=== PATIENT | female | born 1960 | race Two or more races ===

== ENCOUNTER → 2017-04-04 | Outpatient (CLI) | payer OTHER | END | disposition home or self-care (01) | LOC: HKI 15:19 | DX: M17.11 Unilateral primary osteoarthritis, right knee (principal) | CPT/HCPCS: 73564; 73564-RT ==

== ENCOUNTER → 2017-04-16 | Outpatient (CLI) | payer OTHER | END | disposition home or self-care (01) | LOC: HKI 14:29 | DX: M17.11 Unilateral primary osteoarthritis, right knee (principal) | CPT/HCPCS: 20610 ==

== ENCOUNTER → 2017-05-07 | Outpatient (CLI) | payer OTHER | END | disposition home or self-care (01) | LOC: HKI 14:57 | DX: M17.11 Unilateral primary osteoarthritis, right knee (principal); M25.551 Pain in right hip | CPT/HCPCS: 73502 ==

== ENCOUNTER → 2017-06-03 | Outpatient (CLI) | payer OTHER | END | disposition home or self-care (01) | LOC: HKI 10:37 | DX: M23.200 Derangement of unspecified lateral meniscus due to old tear or injury, right knee (principal) | CPT/HCPCS: Z7500 ==

== ENCOUNTER → 2017-06-27 | Outpatient (CLI) | payer OTHER | END | disposition home or self-care (01) | LOC: HKI 13:38 | DX: M17.11 Unilateral primary osteoarthritis, right knee (principal) | CPT/HCPCS: 20610 ==

== ENCOUNTER → 2017-10-31 | Outpatient (CLI) | payer OTHER | END | disposition home or self-care (01) | LOC: HKI 14:35 | DX: M25.561 Pain in right knee (principal) | CPT/HCPCS: 73564; 73564-RT ==

== ENCOUNTER → 2017-11-12 | Outpatient (CLI) | payer OTHER | END | disposition home or self-care (01) | LOC: HKI 13:46 | DX: M17.11 Unilateral primary osteoarthritis, right knee (principal) | CPT/HCPCS: 20610 ==

== ENCOUNTER → 2017-12-03 | Outpatient (CLI) | payer OTHER | END | disposition home or self-care (01) | LOC: HKI 14:49 | DX: M17.11 Unilateral primary osteoarthritis, right knee (principal) | CPT/HCPCS: 73564; 73564-RT ==

== ENCOUNTER 2018-04-16 05:19 | Inpatient (IN) | payer OTHER ==
[2018-04-16] MEDS: LACTATED RINGER'S 1,000 ML IV* (06:18)
[2018-04-16] MEDS ORDERED: LIDOCAINE 2% (SDV) 5 ML INJ (07:00)
[2018-04-16] MEDS ORDERED: ONDANSETRON 4 MG INJ (07:00)
[2018-04-16] MEDS ORDERED: FENTAnyl 50 MCG/ML VIAL ×2 (07:23→08:19)
[2018-04-16] MEDS ORDERED: MIDAZOLAM 1 MG/ML 2 ML INJ (07:23)
[2018-04-16] MEDS ORDERED: PROPOFOL 20 ML (07:23)
[2018-04-16] MEDS ORDERED: METOCLOPRAMIDE 10 MG INJ (07:26)
[2018-04-16] MEDS ORDERED: morphine SULFATE/PF (10 MG/10 ML) INJ (07:26)
[2018-04-16] MEDS ORDERED: ROPIVACAINE 0.5 % 30 ML VIAL (07:27)
[2018-04-16] MEDS ORDERED: HALOPERIDOL 5 MG INJ IV (07:30)
[2018-04-16] MEDS ORDERED: MIDAZOLAM 1 MG/ML 2 ML INJ IV (07:30)
[2018-04-16] MEDS ORDERED: BISACODYL 10 MG SUPP PR (07:30)
[2018-04-16] MEDS ORDERED: LEVALBUTEROL (NEB) 1.25 MG/0.5 ML AMP HHN (07:30)
[2018-04-16] MEDS ORDERED: BETHANECHOL 25 MG TAB PO (07:30)
[2018-04-16] MEDS ORDERED: MAGNESIUM HYDROXIDE 30ML CUP PO (07:30)
[2018-04-16] MEDS ORDERED: LORAZEPAM 2 MG INJ IV (07:30)
[2018-04-16] MEDS ORDERED: IPRATROPIUM (NEB) 0.5 MG/2.5 ML AMP HHN (07:30)
[2018-04-16] MEDS ORDERED: NACL 0.9% 3 ML SYG IV (07:30)
[2018-04-16] MEDS ORDERED: FENTAnyl 50 MCG/ML VIAL IV (07:30)
[2018-04-16] MEDS ORDERED: NA PHOSPHATE/BIPHOS 133 ML ENEMA PR (07:30)
[2018-04-16] MEDS ORDERED: oxyCODONE 5 MG TAB PO (07:30)
[2018-04-16] MEDS ORDERED: HYDROmorphONE 1 MG/5 ML IV SYRINGE IV (07:30)
[2018-04-16] MEDS ORDERED: hydrALAzine 20 MG INJ IV (07:30)
[2018-04-16] MEDS ORDERED: NALOXONE (0.4 MG/ML) INJ IV (07:30)
[2018-04-16] MEDS ORDERED: LABETALOL HCL 20MG INJ IV (07:30)
[2018-04-16] MEDS ORDERED: EPINEPHrine 1 MG INJ (07:32)
[2018-04-16] MEDS: TRANEXAMIC ACID 1,000 MG in NS 100 ML PRE-OP X1 IVPB (08:00)
[2018-04-16] MEDS: CEFAZOLIN 2 GM/50 ML (PMX) 50 ML IVPB ×4 (08:08→22:56)
[2018-04-16] MEDS ORDERED: HYDROmorphONE 2 MG/ML SYG (08:17)
[2018-04-16] MEDS: BACITRACIN 50000 UNITS INJ (08:22)
[2018-04-16] MEDS: POLYMYXIN B 500000 UNIT INJ (08:25)
[2018-04-16] MEDS: KNEE PAIN COCKTAIL (CEFUROXIME) INJ (08:25)
[2018-04-16] MEDS ORDERED: DEXAMETHASONE 4 MG/ML 5 ML INJ (09:09)
[2018-04-16] MEDS: TRANEXAMIC ACID 1,000 MG in NS 100 ML INTRA-OP X1 IVPB (09:11)
[2018-04-16] MEDS: HYDROmorphONE 1 MG/5 ML IV SYRINGE IV ×3 (09:51→10:25)
[2018-04-16] MEDS: MEPERIDINE 25 MG INJ IV (09:51)
[2018-04-16] MEDS: ONDANSETRON 4 MG INJ IV (09:56)
[2018-04-16] MEDS: DIPHENHYDRAMINE 50 MG INJ IV (10:25)
[2018-04-16] MEDS: FENTAnyl 50 MCG/ML VIAL IV (10:32)
[2018-04-16] MEDS: ASPIRIN 81 MG TAB PO (10:47)
[2018-04-16] MEDS: DOCUSATE SODIUM 100 MG CAP PO (10:47)
[2018-04-16] MEDS: GABAPENTIN 300 MG CAP PO (10:47)
[2018-04-16] MEDS: SOD CHLORIDE 0.9% 1,000 ML IV ×3 (11:13→22:56)
[2018-04-16] MEDS: oxyCODONE 5 MG TAB PO ×3 (13:49→21:35)
[2018-04-16] MEDS: NICOTINE (7 MG/24 HR) PATCH TRANSDERM (16:07)
[2018-04-16] MEDS: HYDROmorphONE 1 MG/ML SYG IV ×2 (18:30→23:37)
[2018-04-16] MEDS: DULOXETINE 30 MG CAP DR PO (20:05)
[2018-04-16] MEDS: AMITRIPTYLINE 50 MG TAB PO (20:05)
[2018-04-16] MEDS: GABAPENTIN 400 MG CAP PO (20:05)
[2018-04-16] MEDS: HYDROmorphONE 0.5 MG/0.5 ML SYG IV (22:03)
[2018-04-17] MEDS: oxyCODONE 5 MG TAB PO ×6 (01:19→23:28)
[2018-04-17] MEDS: DIPHENHYDRAMINE 50 MG INJ IV (02:23)
[2018-04-17] MEDS ORDERED: HYDROmorphONE 0.5 MG/0.5 ML SYG IV (04:00)
[2018-04-17 05:20] LABS: ADD MAN DIFF? NO
[2018-04-17 05:24] LABS: BASOPHILS % 0.3 % (0.0-2.0); EOSINOPHILS # 0.1 10^3/ul (0.0-0.5); EOSINOPHILS % 1.1 % (0.0-7.0); HEMATOCRIT 34.4 % (37.0-47.0); HEMOGLOBIN 11.3 g/dl (12.0-16.0); LYMPHOCYTES # 2.1 10^3/ul (0.8-2.9); LYMPHOCYTES % 23.7 % (15.0-51.0); MEAN CORPUSCULAR HGB CONC 32.8 g/dl (32.0-37.0); MEAN CORPUSCULAR VOLUME 85.1 fl (82.0-101.0); MEAN PLATELET VOLUME 10.6 fl (7.4-10.4); MONOCYTE # 1.1 10^3/ul (0.3-0.9); MONOCYTES % 11.8 % (0.0-11.0); NEUTROPHIL # 5.6 10^3/ul (1.6-7.5); NEUTROPHILS % 62.8 % (39.0-77.0); PLATELET COUNT 188 10^3/UL (140-415); RED BLOOD COUNT 4.04 10^6/ul (4.20-5.40); RED CELL DISTRIBUTION WIDTH 13.5 % (11.5-14.5)
[2018-04-17 05:24] LABS: WHITE BLOOD COUNT 8.9 10^3/ul (4.8-10.8)
[2018-04-17] MEDS: HYDROmorphONE 1 MG/ML SYG IV ×3 (05:36→14:19)
[2018-04-17 05:52] LABS: ANION GAP 6 (5-13); BLOOD UREA NITROGEN 8 mg/dl (7-20); CALCIUM 8.2 mg/dl (8.4-10.2); CARBON DIOXIDE 28 mmol/L (21-31); CHLORIDE 105 mmol/L (97-110); CREATININE 0.63 mg/dl (0.44-1.00); Estimated GFR > 60 mL/min (>60); GLUCOSE 106 mg/dl (70-220); POTASSIUM 3.9 mmol/L (3.5-5.1); SODIUM 139 mmol/L (135-144)
[2018-04-17] MEDS ORDERED: ONDANSETRON 4 MG INJ IV (07:30)
[2018-04-17] MEDS ORDERED: HYDROmorphONE 2 MG/ML SYG IV (08:30)
[2018-04-17] MEDS: ASPIRIN (EC) 81 MG TAB PO ×2 (09:05→20:38)
[2018-04-17] MEDS: CELECOXIB 100 MG CAP PO ×2 (09:05→20:38)
[2018-04-17] MEDS: GABAPENTIN 300 MG CAP PO (09:05)
[2018-04-17] MEDS: NICOTINE (7 MG/24 HR) PATCH TRANSDERM (09:06)
[2018-04-17] MEDS: DULOXETINE 30 MG CAP DR PO ×2 (09:06→20:38)
[2018-04-17] MEDS: DOCUSATE SODIUM 100 MG CAP PO ×2 (09:06→20:38)
[2018-04-17] MEDS: KETOROLAC 30 MG INJ IV (17:20)
[2018-04-17] MEDS: GABAPENTIN 400 MG CAP PO (20:38)
[2018-04-17] MEDS: AMITRIPTYLINE 50 MG TAB PO (20:38)
[2018-04-18 04:57] LABS: ADD MAN DIFF? NO
[2018-04-18 05:01] LABS: BASOPHILS % 0.3 % (0.0-2.0); EOSINOPHILS # 0.4 10^3/ul (0.0-0.5); EOSINOPHILS % 4.7 % (0.0-7.0); HEMATOCRIT 34.8 % (37.0-47.0); HEMOGLOBIN 11.2 g/dl (12.0-16.0); MEAN CORPUSCULAR HEMOGLOBIN 27.7 pg (29.0-33.0); MEAN CORPUSCULAR HGB CONC 32.2 g/dl (32.0-37.0); MEAN CORPUSCULAR VOLUME 85.9 fl (82.0-101.0); MEAN PLATELET VOLUME 10.6 fl (7.4-10.4); MONOCYTE # 1.1 10^3/ul (0.3-0.9); MONOCYTES % 12.1 % (0.0-11.0); NEUTROPHIL # 5.5 10^3/ul (1.6-7.5); NEUTROPHILS % 60.6 % (39.0-77.0); PLATELET COUNT 177 10^3/UL (140-415); RED BLOOD COUNT 4.05 10^6/ul (4.20-5.40); RED CELL DISTRIBUTION WIDTH 13.5 % (11.5-14.5)
[2018-04-18 05:16] LABS: ANION GAP 7 (5-13); BLOOD UREA NITROGEN 11 mg/dl (7-20); CALCIUM 8.3 mg/dl (8.4-10.2); CARBON DIOXIDE 30 mmol/L (21-31); CHLORIDE 104 mmol/L (97-110); CREATININE 0.59 mg/dl (0.44-1.00); Estimated GFR > 60 mL/min (>60); GLUCOSE 119 mg/dl (70-220); POTASSIUM 4.3 mmol/L (3.5-5.1); SODIUM 141 mmol/L (135-144)
[2018-04-18] MEDS: PANTOPRAZOLE (EC) 40 MG TAB PO (05:27)
[2018-04-18] MEDS: oxyCODONE 5 MG TAB PO ×3 (05:34→19:26)
[2018-04-18] MEDS: HYDROmorphONE 1 MG/ML SYG IV (07:26)
[2018-04-18] MEDS: DULOXETINE 30 MG CAP DR PO ×2 (09:28→20:48)
[2018-04-18] MEDS: ASPIRIN (EC) 81 MG TAB PO ×2 (09:29→20:48)
[2018-04-18] MEDS: DOCUSATE SODIUM 100 MG CAP PO ×2 (09:29→20:47)
[2018-04-18] MEDS: GABAPENTIN 300 MG CAP PO (09:29)
[2018-04-18] MEDS: CELECOXIB 100 MG CAP PO ×2 (09:29→20:48)
[2018-04-18] MEDS: KETOROLAC 30 MG INJ IV ×2 (09:32→19:23)
[2018-04-18] MEDS: NICOTINE (7 MG/24 HR) PATCH TRANSDERM (09:38)
[2018-04-18] MEDS: AMITRIPTYLINE 50 MG TAB PO (20:48)
[2018-04-18] MEDS: GABAPENTIN 400 MG CAP PO (20:48)
[2018-04-18] MEDS: SENNA/DOCUSATE NA (8.6MG/50MG) TAB PO (21:01)
[2018-04-19 05:08] LABS: ADD MAN DIFF? NO
[2018-04-19 05:13] LABS: WHITE BLOOD COUNT 6.9 10^3/ul (4.8-10.8)
[2018-04-19 05:13] LABS: BASOPHILS % 0.4 % (0.0-2.0); EOSINOPHILS # 0.5 10^3/ul (0.0-0.5); HEMATOCRIT 30.8 % (37.0-47.0); LYMPHOCYTES # 1.9 10^3/ul (0.8-2.9); LYMPHOCYTES % 28.1 % (15.0-51.0); MEAN CORPUSCULAR HEMOGLOBIN 27.9 pg (29.0-33.0); MEAN CORPUSCULAR HGB CONC 32.5 g/dl (32.0-37.0); MEAN CORPUSCULAR VOLUME 85.8 fl (82.0-101.0); MEAN PLATELET VOLUME 10.8 fl (7.4-10.4); MONOCYTE # 0.8 10^3/ul (0.3-0.9); MONOCYTES % 11.7 % (0.0-11.0); NEUTROPHIL # 3.6 10^3/ul (1.6-7.5); NEUTROPHILS % 52.5 % (39.0-77.0); PLATELET COUNT 182 10^3/UL (140-415); RED BLOOD COUNT 3.59 10^6/ul (4.20-5.40); RED CELL DISTRIBUTION WIDTH 13.3 % (11.5-14.5)
[2018-04-19 05:44] LABS: ANION GAP 3 (5-13); BLOOD UREA NITROGEN 14 mg/dl (7-20); CALCIUM 8.4 mg/dl (8.4-10.2); CARBON DIOXIDE 29 mmol/L (21-31); CHLORIDE 107 mmol/L (97-110); CREATININE 0.64 mg/dl (0.44-1.00); Estimated GFR > 60 mL/min (>60); GLUCOSE 135 mg/dl (70-220); POTASSIUM 3.4 mmol/L (3.5-5.1); SODIUM 139 mmol/L (135-144)
[2018-04-19] MEDS: PANTOPRAZOLE (EC) 40 MG TAB PO (06:39)
[2018-04-19] MEDS: KETOROLAC 30 MG INJ IV ×2 (06:40→13:41)
[2018-04-19] MEDS: POTASSIUM CHLORIDE (SR) 10 MEQ TAB PO (09:55)
[2018-04-19] MEDS: NICOTINE (7 MG/24 HR) PATCH TRANSDERM (09:56)
[2018-04-19] MEDS: ASPIRIN (EC) 81 MG TAB PO (09:56)
[2018-04-19] MEDS: DOCUSATE SODIUM 100 MG CAP PO (09:56)
[2018-04-19] MEDS: DULOXETINE 30 MG CAP DR PO (09:56)
[2018-04-19] MEDS: GABAPENTIN 300 MG CAP PO (09:56)
[2018-04-19] MEDS: CELECOXIB 100 MG CAP PO (09:56)
[2018-04-19] MEDS: POLYETHYLENE GLYCOL 17 GM PACKET PO (10:29)
[2018-04-19] MEDS: oxyCODONE 5 MG TAB PO (12:04)
[2018-04-19] MEDS: BISACODYL (EC) 5 MG TAB PO (13:41)
== END 2018-04-19 17:03 | disposition home health service (06) | DRG 470 ==
LOC: REC 05:19 → MS1 10:41
PROC: 0SRC069 Replacement of Right Knee Joint with Oxidized Zirconium on Polyethylene Synthetic Substitute, Cemented, Open Approach (ICD-10-PCS; principal; 2018-04-16 07:29)
DX: M17.11 Unilateral primary osteoarthritis, right knee (principal); F17.200 Nicotine dependence, unspecified, uncomplicated; G89.29 Other chronic pain; F32.9 Major depressive disorder, single episode, unspecified
CPT/HCPCS: 73560; 80048; 83735; 85025; 88304; 88311; 97110; 97116; 97161; 97167; 97530; 97535

== ENCOUNTER → 2018-04-29 | Outpatient (CLI) | payer OTHER | END | disposition home or self-care (01) | LOC: HKI 14:56 | DX: Z09 Encounter for follow-up examination after completed treatment for conditions other than malignant neoplasm (principal); Z96.651 Presence of right artificial knee joint | CPT/HCPCS: 73562; 73562-RT ==

== ENCOUNTER 2018-05-14 19:20 | Emergency (ER) | payer OTHER ==
[2018-05-14] MEDS: IBUPROFEN 600 MG TAB PO (21:25)
== END 2018-05-14 21:30 | disposition home or self-care (01) ==
LOC: FTE 19:20
DX: K08.89 Other specified disorders of teeth and supporting structures (principal); F17.210 Nicotine dependence, cigarettes, uncomplicated
CPT/HCPCS: 99283; Z7502

== ENCOUNTER → 2018-05-20 | Outpatient (CLI) | payer OTHER | END | disposition home or self-care (01) | LOC: HKI 15:31 | DX: M25.561 Pain in right knee (principal); Z96.651 Presence of right artificial knee joint | CPT/HCPCS: 73562; 73562-RT ==

== ENCOUNTER → 2018-07-22 | Outpatient (CLI) | payer OTHER | END | disposition home or self-care (01) | LOC: HKI 14:49 | DX: Z47.1 Aftercare following joint replacement surgery (principal); Z96.651 Presence of right artificial knee joint | CPT/HCPCS: 73562; 73562-RT ==